=== PATIENT | male | born 1945 | race Caucasian/White ===

== ENCOUNTER → 2020-12-24 | Outpatient (CLI) | payer MEDICARE ==
--- NOTE | 2020-12-24 11:57 | FL ---
EXAMINATION TYPE: FL barium swallow DATE OF EXAM: 12/24/2020 CLINICAL HISTORY: Dysphagia TECHNIQUE: A double contrast esophagram is performed utilizing air and barium. A total of 24 second s of fluoroscopic time was utilized during procedure and 52 images obtained. COMPARISON: None FINDINGS: The esophagus shows normal motility and emptying into the stomach. No evidence of hiatal h ernia or stricture noted. Gastroesophageal reflux was seen to the lower esophogus during real time pe rformance of this study. IMPRESSION: Gastroesophageal reflux was seen to the lower esophogus during real time performance of this study.
== END | disposition home or self-care (01) ==
LOC: RADUSWWP 10:37
PROVIDERS: ATTEND Otolaryngology
DX: K21.9 Gastro-esophageal reflux disease without esophagitis (principal)
CPT/HCPCS: 74220